=== PATIENT | male | born 1965 | race Caucasian/White ===

== ENCOUNTER → 2018-03-23 | Outpatient (CLI) | payer OTHER ==
[~2018-03-23] MED LIST: DOCU-109 PO; LACT20SO PO; LEVO88TA4 PO; MELO15TA6 PO; PRAV20TA2 PO; RANI300T3 PO; TAMS0.4C97 PO; TRIA5PAS5 TOP; WARF2TAB PO; WARF6TAB PO
[2018-03-23 20:31] LABS: BASO % 0 % (0-3); EOS # 0.1 x10^3/uL (0.0-0.7); EOS % 2 % (0-3); HEMATOCRIT 44.3 % (39.0-53.0); LYMPH # 2.8 x10^3/uL (1.0-4.8); LYMPH % 39 % (24-48); MEAN CORPUSCULAR HEMOGLOBIN 32 pg (25-35); MEAN CORPUSCULAR HGB CONC 34 g/dL (31-37); MEAN CORPUSCULAR VOLUME 95 fL (79-100); MONO # 0.5 x10^3/uL (0.0-1.1); MONO % 8 % (0-9); NEUT # 3.6 x10^3uL (1.8-7.7); NEUT % 51 % (31-73); PLATELET COUNT 155 x10^3/uL (140-400); RED BLOOD COUNT 4.68 x10^6/uL (4.30-5.70); RED CELL DISTRIBUTION WIDTH 13.2 % (11.5-14.5); WHITE BLOOD COUNT 7.1 x10^3/uL (4.0-11.0)
[2018-03-23 21:06] LABS: ALBUMIN 4.4 g/dL (3.4-5.0); ALBUMIN/GLOBULIN RATIO 1.5 (1.0-1.7); CALCIUM 9.1 mg/dL (8.5-10.1); CREATININE 1.1 mg/dL (0.7-1.3); GFR 70.3; POTASSIUM 3.9 mmol/L (3.5-5.1); TOTAL BILIRUBIN 0.4 mg/dL (0.2-1.0); TOTAL PROTEIN 7.4 g/dL (6.4-8.2)
== END | disposition home or self-care (01) ==
LOC: LAB 19:47
PROVIDERS: ATTEND Nurse Practitioner Family
DX: R06.02 Shortness of breath (principal)
CPT/HCPCS: 36415; 80053; 85025

== ENCOUNTER → 2018-07-05 | Outpatient (CLI) | payer OTHER ==
[2018-07-05 10:24] LABS: BASO % 0 % (0-3); EOS # 0.1 x10^3/uL (0.0-0.7); EOS % 1 % (0-3); HEMATOCRIT 43.1 % (39.0-53.0); HEMOGLOBIN 14.6 g/dL (13.0-17.5); LYMPH # 1.8 x10^3/uL (1.0-4.8); LYMPH % 20 % (24-48); MEAN CORPUSCULAR HEMOGLOBIN 32 pg (25-35); MEAN CORPUSCULAR HGB CONC 34 g/dL (31-37); MEAN CORPUSCULAR VOLUME 95 fL (79-100); MONO # 0.9 x10^3/uL (0.0-1.1); MONO % 10 % (0-9); NEUT # 6.1 x10^3uL (1.8-7.7); NEUT % 69 % (31-73); PLATELET COUNT 151 x10^3/uL (140-400); RED BLOOD COUNT 4.55 x10^6/uL (4.30-5.70); RED CELL DISTRIBUTION WIDTH 13.2 % (11.5-14.5); WHITE BLOOD COUNT 8.9 x10^3/uL (4.0-11.0)
[2018-07-05 14:23] LABS: ALBUMIN 4.1 g/dL (3.4-5.0); ALBUMIN/GLOBULIN RATIO 1.4 (1.0-1.7); CREATININE 1.1 mg/dL (0.7-1.3); GFR 70.3; POTASSIUM 4.2 mmol/L (3.5-5.1); TOTAL BILIRUBIN 1.3 mg/dL (0.2-1.0)
== END | disposition home or self-care (01) ==
LOC: SPEC 09:48 → EEVIPCON 09:48
DX: R07.89 Other chest pain (principal); E03.9 Hypothyroidism, unspecified; Z86.718 Personal history of other venous thrombosis and embolism
CPT/HCPCS: 36415; 80053; 85025

== ENCOUNTER → 2018-07-20 | Outpatient (CLI) | payer OTHER ==
[~2018-07-20] MED LIST changes: +REGADENOSON 0.4 MG/5 ML DISP.SYRIN. IV ONE
--- NOTE | 2018-07-20 12:49 | RAD ---
MR#: [id number] Date of Study: 07/20/2018 Ordering Physician: CHELY SALGADO, Referring Physician: AUDRA LIVINGSTON Tech: KOLTON Khan ARRT (Marco A) (N) APPROVED REPORT Test Type: Pharmacological Stress Nurse/Tech: NANETTE Jung/ Nighat Berg [facility] Test Indications: cp Medications: See Electronic Medical Record Medical History: See Electronic Medical Record Resting ECG: SR Resting Heart Rate: 61 bpm Resting Blood Pressure: 118/69mmHg Pretest Chest Pain: No chest pain Nurse/Tech Notes SR, NO ACUTE CHANGES Consent: The procedure was explained to the patient in lay terms. Informed consent was witnessed. Oskar eout was entered into [employer]. History and Stress Test performed by KOLTON Khan ARRT (R) (N) Pharm. Details Pharmacologic stress testing was performed using 0.4mg per 5ml of regadenoson given intravenously ove r 7-10 seconds. Stress Symptoms No chest pain or symptoms. POST EXERCISE Reason for Termination: Infusion complete Target HR: No Max HR: 98 bpm 69% of Maximum Predicted HR: 142 bpm Exercise duration: 6 min:sec, Stage Max Blood Pressure: 122/70mmHg Blood Pressure response to exercise: Normal blood pressure response during stress. Chest Pain: No. Arrhythmia: No. ST Change: No. INTERPRETATION Stress EKG Conclusion: The resting EKG shows a sinus rhythm and nonspecific ST segment changes. The stress EKG shows no significant changes from baseline. No EKG evidence of stressed induced ischemia. Imaging Protocol IMAGE PROTOCOL: Rest Tc-99m/stress Tc-99m 1 day Rest: Stress: Viability: Radiopharm.Tc99m BwacnhxlhSt10a Sestamibi Bsoc01xPm 33mCi Img Date 07/20/2018 07/20/2018 Inj-Img [id number]. 60min. Rest Admin Site:IV - Left HandAdministrator: KOLTON Khan ARRT (R)(N) Stress Admin Site: IV - Left HandAdministrator: Nighat Berg, NMTCB, ARRT (R)(N) STRESS DATA End Diast. Vol.157.0mlAv. Heart Rate57.0bpm LVEDV index BSA2.0mlCardiac Output0.1L/min End Syst. Vol.74.0mlCO Index BSA4.7L/min LVESV index BSA1.0mlMyocardial Mcgy695.0g Eject. Ygewgtcb77.0% Stress Rates Pk. Fill Rate2.22EDV/secLVtime Pk. Fill 155.08msec Pk. Empty Rate2.68ESV/secLVtime Pk. Kfdxs566.06msec 11/10 Pk. Fill1.48EDV/sec Stress Scores Regional WT0.00Summed WT0.00 Regional WM0.00Summed WM4.00 LV Perfusion The stress scans show no significant defects. The rest scans show no significant defects. Nuclear imaging shows no reversible ischemia. There is mild fixed apical thinning present. [employer] Ventricular systolic function is low normal with an ejection fraction of 53%. LV Perf. Quant 17 Seg. SSS2.00 17 Seg. SRS5.00 17 Seg. SDS0.00 Stress Defect Extent (% LAD)9.40Rest Defect Extent (% LAD)13.10Rev. Defect Extent (% LAD)0.00 Stress Defect Extent (% LCX) 0.00Rest Defect Extent (% LCX)10.00Rev. Defect Extent (% LCX)0.00 Stress Defect Extent (% RCA)1.10Rest Defect Extent (% RCA)4.40Rev. Defect Extent (% RCA)0.00 Stress Defect Extent (% KEYLA)5.70Rest Defect Extent (% KEYLA)11.70Rev. Defect Extent (% KEYLA)0.00 Conclusion 1. No EKG evidence of stressed induced ischemia. 2. Nuclear imaging shows no reversible ischemia. 3. Nuclear imaging shows slight fixed apical thinning which is probably a technical artifact. 4. Low normal left ventricular systolic function with an ejection fraction of 53%. 5. Moderately low to low risk Lexiscan nuclear stress test. Signed by : Chely Salgado MD Electronically Approved : 07/20/2018 12:48:32
== END | disposition home or self-care (01) ==
LOC: NM 07:19
PROVIDERS: ATTEND Internal Medicine Cardiovascular Disease
DX: R07.9 Chest pain, unspecified (principal); E03.9 Hypothyroidism, unspecified; E78.00 Pure hypercholesterolemia, unspecified; Z79.01 Long term (current) use of anticoagulants; Z86.718 Personal history of other venous thrombosis and embolism
CPT/HCPCS: 78452; 93017; 96374; 96375; 96376; A9500; J2785